=== PATIENT | female | born 1995 | race Caucasian/White ===

== ENCOUNTER 2017-01-14 11:04 | Emergency (ER) | payer BC ==
[~2017-01-14] VITALS: Ht 160 cm; Wt 80.4 kg
[~2017-01-14 11:04] MED LIST: BCP
[2017-01-14 11:08] VITALS: BP 130/106; PULSE 84; TEMP 37.2; O2SAT 100; Ht 160 cm; Wt 80.4 kg
--- NOTE | 2017-01-14 15:26 | EMERGENCY ROOM VISIT NOTE ---
History Report prepared by Juan Jose: Laney Jacobo Under the Supervision of: Dr. Sixto Jaimes M.D. First contact with patient: 11:57 Chief Complaint: HEADACHE Stated Complaint: BUNDY, NECK, EYE PAIN-BLURRED VISION, LIGHT SENSITIVE History of Present Illness The patient is a 21 year old female who presents to the Emergency Room with complaints of a worsening headache for the past two days. The patient states that two days ago she was getting out of her car and hit the back of her head on the roof of her car. She did not black out or lose consciousness. She developed a headache at the time of that injury and states that it has been worsening since that time. It was initially located in the back of her head, but she states that now her pain is diffusely throughout her head. The patient reports nausea, blurred vision, dizziness, neck pain, and photophobia. She rates her pain as a 7/10 in severity. She has a history of migraine headaches and states that this does not feel like her typical migraines. She is 12-13 weeks with her first . The patient denies any family history of preeclampsia. She denies fevers, urinary symptoms, abnormal vaginal bleeding or discharge, and any swelling to her extremities. Source of History: patient Onset: 2 days ago Position: head Symptom Intensity: 7/10 Timing: worsening Modifying Factors (Worsening): other (light) Associated Symptoms: + neck pain, + nausea, No fevers, No urinary symptoms Note: Pt notes blurred vision and dizziness. Pt denies vaginal bleeding or discharge. Review of Systems See HPI for pertinent positives & negatives. A total of 10 systems reviewed and were otherwise negative. Past Medical & Surgical Medical Problems: (1) Overexertion (2) Sprain lumbar region Family History Diabetes mellitus Heart disease Social History Smoking Status: Never Smoker Alcohol Use: none Drug Use: none Marital Status: single Housing Status: lives with family Occupation Status: employed Current/Historical Medications No Active Prescriptions or Reported Meds Allergies Coded Allergies: Sulfa Antibiotics (Unverified Allergy, Severe, RED HIVES & RASH ON HANDS AND FEET, TROUBLE BREATHING, 01/14/17) NUTS (Unverified Allergy, Mild, 02/14/08) Physical Exam Vital Signs Date Time Temp Pulse Resp B/P (MAP) Pulse Ox O2 Delivery O2 Flow Rate FiO2 01/14/17 12:25 01/14/17 11:08 37.2 84 18 130/106 100 Room Air Physical Exam Constitutional: Vital signs reviewed. Eyes: Pupils are equal round reactive to light. Conjunctiva are noninjected. ENT: Pharynx is clear without erythema or exudate. Mucous membranes are moist. Neck supple without meningeal signs. Respiratory: Clear to auscultation bilaterally. Breath sounds are equal bilaterally. Cardiovascular: Regular rate and rhythm. No rubs or gallops. GI: Soft, nondistended and nontender. Bowel sounds are present. Musculoskeletal: No peripheral edema. Integumentary: No cyanosis. Neurological: The patient is awake and alert. Cranial nerves II-XII are intact. Motor is 5 out of 5 all extremities. Sensation is intact to light touch all extremities. Normal speech. No pronator drift. Psychiatric: Does not appear depressed. Not tearful. No pressured speech. Appears annoyed when answering questions. Medical Decision & Procedures ED Course 1157: The patient was evaluated in room C3. A complete history and physical exam was performed. At this time the patient refused any treatment and is requesting to leave. She will be discharged from the ED against medical advice. Medical Decision This is a 21-year-old female presents with headache after a head injury with some neurologic symptoms. Differential diagnosis includes intracranial hemorrhage, postconcussive syndrome, eclampsia, migraine headache, meningitis. I did perform a limited focused review of portions of the patient's old chart on the electronic medical record. The patient has had no recent pertinent visits to this hospital. I did evaluate the patient as noted above. The patient seemed upset as soon as I started interviewing her. I attributed this to her discomfort. She seemed, however, to become increasingly neftaly and annoyed during the interview. After I examined her I expressed my concern for the potential for intracranial hemorrhage given her head injury and persistent headache with neurologic symptoms. I did explain to her that the best way to evaluate for this would be a CT scan of her head where they would shield her pelvis to avoid scatter radiation but I could not completely rule out a very small amount of scatter radiation reaching her fetus. I did explain to her that there is no evidence to suggest that such a small amount of scatter radiation would lead to any increase defects or adverse effects to her unborn fetus. I did, however, state that any amount of radiation is potentially theoretically harmful but the risk of a intracranial hemorrhage going undiagnosed far outweighs this risk. She then immediately stated that she did not wish to have a CT. I thought that perhaps I did not explain things well enough and so I tried to explain it again to address her concerns about radiation exposure. She flatly refused stating that she just wanted to get out of here as the "unprofessionalism" since she got to the hospital was too much for her. She stated that she would go to her doctor who could "better explain" the risks to her. She left AGAINST MEDICAL ADVICE. I did speak to the nurse and the charge nurse. According to the nurse the patient was belligerent and hostile with her and even registration when she got here. She was informed of the risk of leaving AGAINST MEDICAL ADVICE including , permanent mental or physical handicap to herself as well as her unborn fetus or other unforeseen consequences. Medication Reconcilliation Current Medication List: was personally reviewed by me Blood Pressure Screening Patient's blood pressure: Elevated blood pressure Blood pressure disposition: Referred to PCP Impression Primary Impression: Acute head injury Additional Impressions: Dizziness Second trimester Elevated blood pressure reading Left against medical advice Headache Scribe Attestation The scribe's documentation has been prepared under my direct and personally reviewed by me in its entirety. I confirm that the note above accurately reflects all work, treatment, procedures, and medical decision making performed by me. Departure Information Dispostion Against Medical Advice Prescriptions No Active Prescriptions or Reported Meds Referrals Sea Laureano M.D. (PCP) Forms HOME CARE DOCUMENTATION FORM, IMPORTANT VISIT INFORMATION Patient Instructions [facility] Additional Instructions You are leaving the hospital AGAINST MEDICAL ADVICE. By doing so you risk or permanent mental or physical handicap to you as well as your unborn fetus. You may also develop chronic pain, infertility (loss of the ability to have children permanently ), or other unforeseen negative consequences. You are declining testing to determine the cause of your symptoms and to rule out any life-threatening illness including, but not limited to, a bleed in your brain, preeclampsia. Follow up as soon as possible with your physician. You may return at any time if you change your mind or if you develop worsening symptoms or any new concerning symptoms. Problem Qualifiers Primary Impression: Acute head injury Encounter type: initial encounter Qualified Codes: S09.90XA - Unspecified injury of head, initial encounter Additional Impressions: Headache Headache type: unspecified Headache chronicity pattern: acute headache
== END 2017-01-14 12:25 | disposition left against medical advice (07) ==
LOC: C.EDB 11:06 → C.EDC 12:25
DX: S09.90XA Unspecified injury of head, initial encounter (principal); X58.XXXA Exposure to other specified factors, initial encounter; R42 Dizziness and giddiness; Z34.02 Encounter for supervision of normal first pregnancy, second trimester; R03.0 Elevated blood-pressure reading, without diagnosis of hypertension; R51 Headache; Z83.3 Family history of diabetes mellitus; Z82.49 Family history of ischemic heart disease and other diseases of the circulatory system

== ENCOUNTER 2019-08-15 12:36 | Inpatient (IN) ==
[2019-08-15] MEDS ORDERED: LORazepam 1 MG TAB SL STA (13:02)
--- NOTE | 2019-08-15 13:15 | Emergency Department Note ---
Impression & Plan Mood disorder, Suicidal ideations ED Provider Note NAME: LEXIE BLANDON AGE: 23 SEX: F : 1995 ARRIVES VIA: Walk-In INFORMANT: Patient ED PROVIDER(S): Amrik Peralta DO CHIEF COMPLAINT: Depression and thoughts of suicide HPI: Patient is a 23-year-old female who presents the ER for depression. She notes that she has been depressed and having worsening suicidal thoughts over the past several days. She notes that she has been having worsening depression over the past year. History of PTSD and depression. She takes a marijuana tablet a day along with vitamins. Patient notes that she was referred in by her therapist. She has persistent thoughts of killing herself. She does not have a clear plan at this time. Denies any auditory visual hallucinations. No homicidal ideation patients. She notes that she has not been caring for herself. She cannot sleep. ROS: See above HPI for pertinent positives & negatives. A total of 10 systems reviewed and were otherwise negative. PAST MEDICAL HISTORY:See Below PAST SURGICAL HISTORY:See Below FAMILY HISTORY:See Below SOCIAL HISTORY:See Below HOME MEDICATIONS:See Below ALLERGIES:See Below VITALS:See Below PHYSICAL EXAMINATION: GENERAL: Sitting up in bed, sitting in bed tearful and crying EYE EXAM: normal conjunctiva. PERRL and EOM's grossly intact. OROPHARYNX: no exudate, no erythema, lips, buccal mucosa, and tongue normal and mucous membranes are moist NECK: supple, no nuchal rigidity, no adenopathy, non-tender LUNGS: Clear to auscultation. Normal chest wall mechanics HEART: no murmurs, S1 normal and S2 normal ABDOMEN: abdomen soft, non-tender, normo-active bowel sounds, no masses, no rebo und or guarding. BACK: Back is symmetrical on inspection and there is no deformity, no midline tenderness, no CVA tenderness. SKIN: no rashes and no bruising UPPER EXTREMITIES: upper extremities are grossly normal. LOWER EXTREMITIES: No pitting edema. NEURO EXAM: Normal sensorium, cranial nerves II-XII grossly intact, normal speech, no gross weakness of arms, no gross weakness of legs. PSYCH: Admits to suicidal ideations but denies homicidal ideations. MEDICAL DECISION MAKING: Patient is a 23-year-old female who presents the ER for suicidal ideations. She notes that she is been having worsening depression over the past several days. She notes that she cannot function. She not been eating or drinking. Has been sleeping. She was referred in by her therapist. IV was established blood work was obtained. Labs show no significant leukocytosis or anemia. BMP low with LFTs bilirubin and TSH was unremarkable. UA was negative. was negative. Acetaminophen and salicylate was negative. Alcohol negative. Urine tox was positive marijuana which she admits to. Patient does admit to suicidal ideations. She is extremely tearful. Does not appear to be able to function. Evaluated by Anat from our psychiatric childcare provider team. Refer to [facility] for admission. Patient was signed out to Dr. Watts awaiting admission. Triage Nursing notes reviewed. Prior medical records reviewed Vital Signs: reviewed and remarkable for hypertension Differential diagnosis: Mood disorder, infection, hypoglycemia, electrolyte abnormalities, cardiac sources, intracerebral event, toxicologic, trauma, neurologic, as well as other pathologies. ER treatment provided: See below Diagnostics interpreted by me: ECG: none Laboratory studies: As stated above and show below. Imaging studies: None Consultation(s): none ED COURSE: Procedures: none Critical Care: None Past Med/Surg History Social History Preferred Language: Lithuanian Feels Safe at Home: Yes Smoking Status: Never smoker Allergies Allergies Allergy/AdvReac Type Severity Reaction Status Date / Time Sulfa (Sulfonamide Allergy Severe RED HIVES Unverified 01/14/17 11:20 Antibiotics) & RASH ON HANDS AND FEET, TROUBLE BREATHING nut - unspecified Allergy Mild Unknown Unverified 08/15/19 13:06 metronidazole [From Flagyl] Allergy Unknown Verified 08/15/19 13:06 Home Meds Home Medications Medication Instructions Recorded Confirmed 5-hydroxytryptophan (5-HTP) 100 mg PO DAILY 08/15/19 08/15/19 Medical Marijuana 100 mg PO QAM 08/15/19 08/15/19 [place]'s wort 300 mg PO DAILY 08/15/19 08/15/19 dextroamphetamine-amphetamine 15 mg PO DAILY 08/15/19 08/15/19 dextroamphetamine-amphetamine 20 mg PO DAILY 08/15/19 08/15/19 Results & Data (ED) Vital Signs Vital Signs - 24 hr 08/15/19 12:49 08/15/19 14:36 Temperature 36.9 C Temperature Source Oral Pulse Rate 95 H Pulse Rate [Finger] 85 Respiratory Rate 18 18 Respiratory Effort / Characteristics Non-Labored Spontaneous Respiratory Depth Normal Respiratory Pattern Regular Blood Pressure 158/109 H Blood Pressure [Left Arm] 145/88 H Blood Pressure Mean 125 Blood Pressure Mean [Left Arm] 107 Blood Pressure Position Sitting Pulse Oximetry 99 97 Oxygen Delivery Method Room Air Room Air Sepsis Recent Fever Within 48 Hours No Sepsis New/Unexplained Change in Mental Status No Sepsis Action Taken by Nursing No Action Required Laboratory Data Result diagrams: 08/15/19 13:45 08/15/19 13:45 Lab Results 08/15/19 08/15/19 08/15/19 Range/Units 13:15 13:15 13:15 WBC (4.8-10.8) K/uL RBC (4.2-5.4) M/uL Hgb (12.0-16.0) g/dL Hct (37-47) % MCV (80-100) fL MCH (25-34) pg MCHC (32-36) g/dL RDW Std Deviation (36.4-46.3) fL RDW Coeff of Marycarmen (11.5-14.5) % Plt Count (130-400) K/uL MPV (7.4-10.4) fL Immature Gran % (Auto) % Neut % (Auto) % Lymph % (Auto) % [place] % (Auto) % Eos % (Auto) % Baso % (Auto) % Immature Gran # (Auto) (0.00-0.02) K/uL Neut # (Auto) (1.4-6.5) K/uL Lymph # (Auto) (1.2-3.4) K/uL [place] # (Auto) (0.11-0.59) K/uL Eos # (Auto) (0-0.5) K/uL Baso # (Auto) (0-0.2) K/uL Sodium (136-145) mmol/L Potassium (3.5-5.1) mmol/L Chloride (98-107) mmol/L Carbon Dioxide (21-32) mmol/L Anion Gap (3-11) BUN (7-18) mg/dl Creatinine (0.6-1.2) mg/dl Est Cr Clr Drug Dosing ml/min Est GFR ( Amer) Est GFR (Non-Af Amer) BUN/Creatinine Ratio (10-20) Glucose (70-99) mg/dl Calcium (8.5-10.1) mg/dl Total Bilirubin (0.2-1) mg/dl AST (15-37) U/L ALT (12-78) U/L Alkaline Phosphatase (45-117) U/L Total Protein (6.4-8.2) gm/dl Albumin (3.4-5.0) gm/dl Globulin (2.5-4.0) gm/dl Albumin/Globulin Ratio (0.9-2) TSH (0.300-4.500) uIu/ml Urine Color Yellow Urine Appearance Clear (Clear) Urine pH 6.0 (4.5-7.5) Ur Specific [place] 1.019 (1.000-1.030) Urine Protein Negative (Negative) Urine Glucose (UA) Negative (Negative) Urine Ketones Trace H (Negative) Urine Blood Negative (Negative) Urine Nitrite Negative (Negative) Urine Bilirubin Negative (Negative) Urine Urobilinogen Negative (Negative) Ur Leukocyte Esterase Negative (Negative) POC Ur Test NEG (NEG) Salicylates (2.8-20) mg/dl Urine Opiates Screen Neg (Neg) Ur Methadone, Qual Neg (Neg) Acetaminophen (10-30) ug/ml Urine Barbiturates Neg (Neg) Ur Phencyclidine (PCP) Neg (Neg) U Amphetamin/Meth Scrn Neg (Neg) MDMA (Ecstasy) Screen Neg (Neg) U Benzodiazepines Scrn Neg (Neg) Ur Cocaine Metabolite Neg (Neg) U Marijuana (THC) Screen Pos H (Neg) Ethyl Alcohol mg/dL (0-3) mg/dl 08/15/19 08/15/19 08/15/19 Range/Units 13:45 13:45 13:45 WBC 7.56 (4.8-10.8) K/uL RBC 5.61 H (4.2-5.4) M/uL Hgb 12.9 (12.0-16.0) g/dL Hct 41.4 (37-47) % MCV 73.8 L (80-100) fL MCH 23.0 L (25-34) pg MCHC 31.2 L (32-36) g/dL RDW Std Deviation 45.6 (36.4-46.3) fL RDW Coeff of Marycarmen 16.8 H (11.5-14.5) % Plt Count 410 H (130-400) K/uL MPV 8.9 (7.4-10.4) fL Immature Gran % (Auto) 0.1 % Neut % (Auto) 67.1 % Lymph % (Auto) 25.1 % [place] % (Auto) 6.7 % Eos % (Auto) 0.5 % Baso % (Auto) 0.5 % Immature Gran # (Auto) 0.01 (0.00-0.02) K/uL Neut # (Auto) 5.06 (1.4-6.5) K/uL Lymph # (Auto) 1.90 (1.2-3.4) K/uL [place] # (Auto) 0.51 (0.11-0.59) K/uL Eos # (Auto) 0.04 (0-0.5) K/uL Baso # (Auto) 0.04 (0-0.2) K/uL Sodium 142 (136-145) mmol/L Potassium 4.2 (3.5-5.1) mmol/L Chloride 110 H (98-107) mmol/L Carbon Dioxide 24 (21-32) mmol/L Anion Gap 8.0 (3-11) BUN 9 (7-18) mg/dl Creatinine 0.97 (0.6-1.2) mg/dl Est Cr Clr Drug Dosing 94.0 ml/min Est GFR ( Amer) 94.1 Est GFR (Non-Af Amer) 81.2 BUN/Creatinine Ratio 9.2 L (10-20) Glucose 90 (70-99) mg/dl Calcium 8.6 (8.5-10.1) mg/dl Total Bilirubin 0.3 (0.2-1) mg/dl AST 16 (15-37) U/L ALT 16 (12-78) U/L Alkaline Phosphatase 82 (45-117) U/L Total Protein 8.0 (6.4-8.2) gm/dl Albumin 4.1 (3.4-5.0) gm/dl Globulin 3.9 (2.5-4.0) gm/dl Albumin/Globulin Ratio 1.1 (0.9-2) TSH 1.200 (0.300-4.500) uIu/ml Urine Color Urine Appearance (Clear) Urine pH (4.5-7.5) Ur Specific [place] (1.000-1.030) Urine Protein (Negative) Urine Glucose (UA) (Negative) Urine Ketones (Negative) Urine Blood (Negative) Urine Nitrite (Negative) Urine Bilirubin (Negative) Urine Urobilinogen (Negative) Ur Leukocyte Esterase (Negative) POC Ur Test (NEG) Salicylates < 1.7 L (2.8-20) mg/dl Urine Opiates Screen (Neg) Ur Methadone, Qual (Neg) Acetaminophen < 2 L (10-30) ug/ml Urine Barbiturates (Neg) Ur Phencyclidine (PCP) (Neg) U Amphetamin/Meth Scrn (Neg) MDMA (Ecstasy) Screen (Neg) U Benzodiazepines Scrn (Neg) Ur Cocaine Metabolite (Neg) U Marijuana (THC) Screen (Neg) Ethyl Alcohol mg/dL (0-3) mg/dl 08/15/19 Range/Units 13:45 WBC (4.8-10.8) K/uL RBC (4.2-5.4) M/uL Hgb (12.0-16.0) g/dL Hct (37-47) % MCV (80-100) fL MCH (25-34) pg MCHC (32-36) g/dL RDW Std Deviation (36.4-46.3) fL RDW Coeff of Marycarmen (11.5-14.5) % Plt Count (130-400) K/uL MPV (7.4-10.4) fL Immature Gran % (Auto) % Neut % (Auto) % Lymph % (Auto) % [place] % (Auto) % Eos % (Auto) % Baso % (Auto) % Immature Gran # (Auto) (0.00-0.02) K/uL Neut # (Auto) (1.4-6.5) K/uL Lymph # (Auto) (1.2-3.4) K/uL [place] # (Auto) (0.11-0.59) K/uL Eos # (Auto) (0-0.5) K/uL Baso # (Auto) (0-0.2) K/uL Sodium (136-145) mmol/L Potassium (3.5-5.1) mmol/L Chloride (98-107) mmol/L Carbon Dioxide (21-32) mmol/L Anion Gap (3-11) BUN (7-18) mg/dl Creatinine (0.6-1.2) mg/dl Est Cr Clr Drug Dosing ml/min Est GFR ( Amer) Est GFR (Non-Af Amer) BUN/Creatinine Ratio (10-20) Glucose (70-99) mg/dl Calcium (8.5-10.1) mg/dl Total Bilirubin (0.2-1) mg/dl AST (15-37) U/L ALT (12-78) U/L Alkaline Phosphatase (45-117) U/L Total Protein (6.4-8.2) gm/dl Albumin (3.4-5.0) gm/dl Globulin (2.5-4.0) gm/dl Albumin/Globulin Ratio (0.9-2) TSH (0.300-4.500) uIu/ml Urine Color Urine Appearance (Clear) Urine pH (4.5-7.5) Ur Specific [place] (1.000-1.030) Urine Protein (Negative) Urine Glucose (UA) (Negative) Urine Ketones (Negative) Urine Blood (Negative) Urine Nitrite (Negative) Urine Bilirubin (Negative) Urine Urobilinogen (Negative) Ur Leukocyte Esterase (Negative) POC Ur Test (NEG) Salicylates (2.8-20) mg/dl Urine Opiates Screen (Neg) Ur Methadone, Qual (Neg) Acetaminophen (10-30) ug/ml Urine Barbiturates (Neg) Ur Phencyclidine (PCP) (Neg) U Amphetamin/Meth Scrn (Neg) MDMA (Ecstasy) Screen (Neg) U Benzodiazepines Scrn (Neg) Ur Cocaine Metabolite (Neg) U Marijuana (THC) Screen (Neg) Ethyl Alcohol mg/dL < 3.0 (0-3) mg/dl Administered Medications Discontinued Medications Lorazepam (Ativan) 1 mg SL NOW STA Stop: 08/15/19 13:03 Last Admin: 08/15/19 13:17 Dose: 1 mg Documented by: [id number] Discharge Plan Visit Data Chief Complaint: Mental Health Evaluation Stated Complaint: MENTAL HEALTH EVAL ED Provider: Amrik Peralta Discharge Problem: Mood disorder, Suicidal ideations Forms Stand Alone Forms: [facility], Suicide Prevention Resources Prescriptions Prescriptions: No Action dextroamphetamine-amphetamine 20 mg capsule,extended release 24hr 20 mg PO DAILY RF: 0 dextroamphetamine-amphetamine 15 mg tablet 15 mg PO DAILY RF: 0 [place]'s wort 300 mg Capsule 300 mg PO DAILY RF: 0 5-hydroxytryptophan (5-HTP) 100 mg Capsule 100 mg PO DAILY RF: 0 Medical Marijuana 100 mg 100 mg PO QAM RF: 0
[2019-08-15 13:38] LABS: Appearance Urine Clear (Clear); Bilirubin Urine Negative (Negative); Blood Urine Negative (Negative); Color Urine Yellow; Glucose Urine UA Negative (Negative); Ketones Urine Trace (Negative); Leukocyte Esterase Urine Negative (Negative); Nitrite Urine Negative (Negative); Protein Urine Negative (Negative); Specific Gravity Urine 1.019 (1.000-1.030); Urobilinogen Urine Negative (Negative)
[2019-08-15 14:02] LABS: Basophils # (auto) 0.04 K/uL (0-0.2); Basophils % (auto) 0.5 %; Eosinophils # (auto) 0.04 K/uL (0-0.5); Eosinophils % (auto) 0.5 %; Hematocrit (blood only) 41.4 % (37-47); Hemoglobin 12.9 g/dL (12.0-16.0); Immature Granulocytes # (auto) 0.01 K/uL (0.00-0.02); Immature Granulocytes % (auto) 0.1 %; Lymphocytes % (auto) 25.1 %; Mean Corpuscular Hgb Conc 31.2 g/dL (32-36); Mean Corpuscular Volume 73.8 fL (80-100); Mean Platelet Volume 8.9 fL (7.4-10.4); Monocytes # (auto) 0.51 K/uL (0.11-0.59); Monocytes % (auto) 6.7 %; Neutrophils # (auto) 5.06 K/uL (1.4-6.5); Neutrophils % (auto) 67.1 %; Platelet Count 410 K/uL (130-400); RDW Coefficient of Variation 16.8 % (11.5-14.5); RDW Standard Deviation 45.6 fL (36.4-46.3); Red Blood Count 5.61 M/uL (4.2-5.4); White Blood Count 7.56 K/uL (4.8-10.8)
[2019-08-15 14:11] LABS: Amphetamines+Metham, Urine Neg (Neg); Barbiturates, Urine Neg (Neg); Benzodiazepine, Urine Neg (Neg); Cocaine, Urine Neg (Neg); MDMA (Ecstacy), Urine Neg (Neg); Methadone, Urine Neg (Neg); Opiate, Urine Neg (Neg); Phencyclidine, Urine Neg (Neg)
[2019-08-15 14:16] LABS: Albumin Level 4.1 gm/dl (3.4-5.0); BUN Creatinine Ratio 9.2 (10-20); Calcium 8.6 mg/dl (8.5-10.1); Est GFR (African American) 94.1; Est GFR (Non-African American) 81.2; Potassium 4.2 mmol/L (3.5-5.1)
[2019-08-15 14:27] LABS: Albumin Globulin Ratio 1.1 (0.9-2); Bilirubin,Total 0.3 mg/dl (0.2-1); Globulin 3.9 gm/dl (2.5-4.0); Thyroid Stimulating Hormone 1.2 uIu/ml (0.300-4.500)
[2019-08-15 14:48] LABS: Acetaminophen < 2 ug/ml (10-30); Salicylate < 1.7 mg/dl (2.8-20)
[2019-08-15] MEDS ORDERED: MAGNESIUM HYDROXIDE SUSP 30 ML UDC PO PRN (18:06)
[2019-08-15] MEDS ORDERED: ACETAMINOPHEN 325 MG TAB PO PRN (18:06)
[2019-08-15] MEDS ORDERED: ALUMINUM/MAGNESIUM SUSP 30 ML UDC PO PRN (18:06)
[2019-08-15] MEDS ORDERED: SODIUM CHLORIDE 0.65% NA SOLN 45 ML (OCEAN) PRN (18:06)
[2019-08-15] MEDS ORDERED: BISMUTH SUBSALICYLATE PER ML OMNICELL CHARGE PO PRN (18:06)
--- NOTE | 2019-08-15 18:08 | Emergency Department Note ---
ED Visit Note The patient was admitted to [facility]. .
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
[2019-08-16] MEDS ORDERED: ST JOHN S WORT PO SCH (10:15)
[2019-08-16] MEDS ORDERED: HYDROXYTRYPTOPHAN 100 MG PO SCH (10:15)
[2019-08-16] MEDS ORDERED: AMPHETAMINE ASP/SULF/DEXTRAMPH 5 MG TAB PO SCH (11:00)
[2019-08-16] MEDS: AMPHETAMINE ASP/SULF/DEXTRAMPH ER 20 MG CAP PO SCH (12:23)
[2019-08-17] MEDS: AMPHETAMINE ASP/SULF/DEXTRAMPH ER 20 MG CAP PO SCH (06:51)
[2019-08-17] MEDS: MULTIVITAMIN TAB PO SCH (08:18)
[2019-08-17] MEDS: BuPROPion SR 100 MG TABCR PO SCH (08:27)
--- NOTE | 2019-08-17 11:09 | Psychiatric Progress Note ---
Date of Service August 17, 2019 Impression / Recommendations Impression 23-year-old single female admitted with worsening mood and suicidal ideation. She signed in voluntarily, but then submitted a 72-hour notice, and would like to be discharged tomorrow, which is appropriate his symptoms are improving. She agreed to a trial of bupropion to target mood, and we are exploring options for outpatient treatment, as she would like her PCP to manage her medications and is declining a psychiatric referral. She is also declining a family meeting. Inpatient treatment remains medically necessary due to the severity of presenting symptoms and risk for relapse and suicide/self-harm if discharged prematurely. (1) Mood disorder: 08/15 -differential includes major depression, bipolar II, borderline (or other cluster B) personality disorder, and PTSD. Evaluation limited by patient's unwillingness to fully participate in the assessment, and lack of previous outpatient records. She is unwilling to sign a release as she is angry at her previous psychiatrist. She is requesting a medication trial for depression, and reviewed options including a mood stabilizer such as lithium or lamotrigine, which she states she is unwilling to consider, or a trial of an antidepressant from a different (neurotransmitter groups SSRI or SNRI) group, as she reports poor response to those medications in the past. Reviewed option of bupropion, including risks, benefits, and potential side effects, and she agreed to a trial. She declined a patient information printout about the medication, stating she "already knows all about it." We will start 150 mg every morning, and monitor for side effects. Reviewed that it takes 4 to 6 weeks to see the full effect, and that although it is not serotonergic so there should be no specific drug drug interactions with her supplements, they act different neurotransmitter groups and there may be some interplay. She would like to continue her supplements at her home doses, and brought them in with her. -Coordinate care with her therapist, explore options to increase frequency of therapy appointments at patient's request, and on the other recommendation she might have. -Reviewed recommendations for referral to an outpatient psychiatrist, which the patient is refusing. She would like to follow-up with her PCP, Dr. Mason, at [facility]. Called his office to coordinate care and confirm he is wiling to manage her mental health issues, and left a message with his staff. -Recommend family meeting, possibly with her friend/support who is watching her child, as patient reports limited supports. -Encourage her to participate in treatment, including groups and therapy, and reviewed the option of requesting individual sessions with unit counselors. She states she will refuse all groups. She is submitted a 72-hour notice requesting to withdrawal from treatment, and encouraged her to work with us to ensure her symptoms are addressed and she has a good discharge safety plan. Reviewed patient rights and responsibilities, including request that she treat peers and staff respectfully. 08/16 -continue bupropion SR, coordinate with PCP Dr. Mason as patient would like to follow-up with him for medication management. -Reviewed recommendation for a family meeting, perhaps with her godmother who is currently watching the patient's daughter, but she declined. -Adding improvement in mood, much less irritable today, working on coping skills and mindfulness. (2) Suicidal ideations: Admitted to the locked inpatient unit every 15 minute checks for safety. Encourage her to attend participate in therapy and groups, which she states she will refuse to do. Work on discharge safety plan, to include increasing the frequency of her therapy visits, yoga, meditation, and "making time for myself." Have also started medication to target depressive symptoms, and recommended outpatient psychiatric follow-up. (3) ADHD: Per PDMP, patient filled dextroamphetamine/amphetamine in 09/2018 and again in 08/03/2019, both from family physicians at [facility] (Dr. Mason and Dr. Smith). We will continue her current home dose of 35 mg every morning. Inventory Assets Strengths: seeking treatment, good rapport with therapist Needs: medication, psychiatric care, involvement of supports Risk Factors Assessment Male: No : No Do You Have Access To A Gun?: No Health Problems: Yes Mental Health Diagnoses: Yes Previous Attempt: No Family History of Suicide: No Previous Psychiatric Hospitalization: No Hopelessness: Yes Smoker: No Protective Factors Assessment : No Responsible for Young Children: Yes Employed: No Supportive Family: No Good Rapport with Provider: Yes Interval History Chief Complaint "Better than yesterday". Review of Systems Sleep Information Total Hours of Sleep: 6.5 Sleep Comments: slept in the group room, per her request. Meal Information Percent Meal Consumed - Breakfast: 100 Percent Meal Consumed - Lunch: 50 Percent Meal Consumed - Dinner: 50 Subjective Subjective Patient was seen & assessed and interval progress reviewed with treatment team. Staff reports she has been calm, appropriate in her interactions with them, and attended community meeting. She declined to sign an KUSHAL for [facility], but did speak with the [facility] color print inspector. On my assessment she apologized for her behavior yesterday stating she was angry and took it out on staff. She has been working on "being present," reading a book on mindfulness and doing yoga, and says this helps her to "sit with my feelings and meet them." She denies suicidal thoughts, and would like to be discharged tomorrow. Attempted to clarify reports that she had harmed herself prior to admission, and she states that she was thinking about cutting herself, but did not go through with it as her neighbor intervened. She denies having any cuts or injuries, or harming herself through other means. She states she wants to be able to "reach out when I feel overwhelmed," noting this is difficult for her. She denies side effects to medications, and asked appropriate questions about antidepressants. She is declining a family meeting, stating she does not feel she needs one. Reports poor sleep on the unit which she attributes to being in an unfamiliar space with various noises throughout the night. Physical Exam Psychiatric Orientation: alert and cooperative Apperance: appropriately dressed, appropriately groomed and appeared stated age Eye Contact: good eye contact Motor Behavior: steady gait and station and no abnormal motor movements Speech: normal rate/rhythm/volume of speech Affect: euthymic affect and mood congruent with affect "Much better than yesterday." Thought Process: linear/logical thought process Thought Content: reality based without delusions Suicidal Thoughts: denies suicidal thoughts Homicidal Thoughts: denies homicidal thoughts Cognition: recent memory grossly intact, attention grossly intact and language grossly intact Insight: + fair insight Judgement: + fair judgement Vital Signs (Past 24 Hours) Last Vital Signs Temp 36.8 C 08/17/19 06:47 Pulse 97 H 08/17/19 06:48 Resp 16 08/17/19 06:47 BP 128/84 08/17/19 06:48 Pulse Ox 100 08/15/19 19:29 Results & Data ([facility]) Current Inpatient Medications Current Inpatient Medications: Current Inpatient Medications Acetaminophen (Tylenol) 650 mg PO Q4H PRN PRN Reason: Headache or Minor Fever Stop: 09/14/19 18:05 Al Hydrox/Mg Hydrox/Simethicone (Maalox) 30 ml PO Q4H PRN PRN Reason: GI Upset Stop: 09/14/19 18:05 Amphetamine/Dextroamphetamine (Adderall Xr) 20 mg PO DAILY [facility] Stop: 08/30/19 11:14 Last Admin: 08/17/19 06:51 Dose: 20 mg Documented by: Amphetamine/Dextroamphetamine (Adderall) 15 mg PO DAILY@1400 [facility] Stop: 08/31/19 13:59 Bismuth Subsalicylate (Kaopectate) 15 ml PO PRN PRN PRN Reason: Loose Stool Stop: 09/14/19 18:05 Bupropion HCl (Wellbutrin-Sr) 100 mg PO DAILY [facility] Stop: 09/16/19 08:59 Last Admin: 08/17/19 08:27 Dose: 100 mg Documented by: Hydroxyzine HCl (Vistaril) 50 mg PO HSZ PRN PRN Reason: Insomnia Stop: 09/14/19 18:05 Hydroxyzine HCl (Vistaril) 25 mg PO Q4H PRN PRN Reason: Anxiety Stop: 09/14/19 18:05 Magnesium Hydroxide (Milk Of Magnesia) 30 ml PO DAILY PRN PRN Reason: Constipation Stop: 09/14/19 18:05 Multivitamins (Multivitamin Tab) 1 tab PO QAM JULIETA Stop: 09/16/19 08:59 Last Admin: 08/17/19 08:18 Dose: 1 tab Documented by: Sodium Chloride ([place] Nasal) 1 - 2 sprays NA PRN PRN PRN Reason: Nasal Dryness/Congestion Stop: 09/14/19 18:05 Mental Health & Subst Abuse Tx Therapist Name of Therapist: [facility] Yan[facility] Osorio Therapist's Phone Number: Date of Therapist Appointment: 08/19/19 Time of Therapist Appointment: Touch base with her to discuss a time Therapy Appointment Comment: [address], [address], [place] [address] Plant Clerk Name of Plant Clerk: None Post Discharge Appointments Primary Care Physician Name Of Family Doctor: Rodriguez Mason Primary Care Contact Information Discharge Discharge Address: [address], [address], [place] [address]
[2019-08-17] MEDS ORDERED: AMPHETAMINE ASP/SULF/DEXTRAMPH 5 MG TAB PO SCH (14:00)
[2019-08-17 22:34] LABS: Marijuana Quant, GCMS Urine 136 ng/mL (<5)
[2019-08-18] MEDS: AMPHETAMINE ASP/SULF/DEXTRAMPH ER 20 MG CAP PO SCH (08:09)
[2019-08-18] MEDS: MULTIVITAMIN TAB PO SCH (08:09)
[2019-08-18] MEDS: BuPROPion SR 100 MG TABCR PO SCH (08:10)
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
== END 2019-08-18 11:02 | disposition home or self-care (01) | DRG 881 ==
LOC: ED 12:36 → 3S 18:06